=== PATIENT | male | born 1990 | race African-American/Black ===

== ENCOUNTER 2016-09-02 10:41 | Emergency (ER) | payer MEDICAID ==
[~2016-09-02] VITALS: Ht 180.3 cm; Wt 82.0 kg
[2016-09-02] MEDS ORDERED: PALI9TAB3 PO (10:48)
[2016-09-02] MEDS ORDERED: SODIUM CHLORIDE 0.9% 500 ML IV ONE (11:07)
[2016-09-02 11:13] VITALS: BP 126/72
[2016-09-02 11:28] LABS: BASOPHILS % 0.9 % (0.0-2.0); HEMATOCRIT. 40.4 % (42.0-52.0); HEMOGLOBIN. 14.1 g/dL (14.0-18.0); LYMPHOCYTES % 41.5 % (20.0-50.0); MEAN CORPUSCULAR HEMOGLOBIN 31.4 pg (28.0-32.0); MEAN CORPUSCULAR HGB CONC 34.9 g/dL (31.0-37.0); MEAN CORPUSCULAR VOLUME 89.9 fL (80.0-94.0); MEAN PLATELET VOLUME 9.5 fl (7.4-10.4); MONOCYTES % 8.6 % (2.0-8.0); PLATELET 178 x1000/uL (130-400); RED BLOOD CELL COUNT 4.49 mill/uL (4.7-6.1); RED CELL DISTRIBUTION WIDTH 12.6 % (11.6-14.6); WHITE BLOOD COUNT 4.7 x1000/uL (4.5-11.0)
[2016-09-02 11:37] LABS: INR 1.1
[2016-09-02 11:42] LABS: ALANINE AMINOTRANSFERASE 26 IU/L (13-61); ALBUMIN 3.7 g/dL (3.4-5.0); ANION GAP 10; CALCIUM 8.3 mg/dL (8.5-10.1); CARBON DIOXIDE 27 mEq/L (21-32); CHLORIDE 107 mEq/L (98-107); INDEX HEMOLYSI 1 (1-3); INDEX ICTERIC 1 (1-4); INDEX LIPEMIC 1 (1-3); UREA NITROGEN BLOOD 10 mg/dL (7-21); eGFR > 60 mL/min (>60)
[2016-09-02 11:46] LABS: NT PRO B-TYPE NATRIURETIC PEP 14 pg/mL (5-125); TROPONIN I < 0.02 ng/mL (0.00-0.04)
== END 2016-09-02 12:35 | disposition home or self-care (01) ==
LOC: ER 11:20
DX: R51 Headache (principal); R55 Syncope and collapse; F31.9 Bipolar disorder, unspecified
CPT/HCPCS: 36415; 70450; 80053; 83880; 84484; 85025; 85610; 93005; 99285; J7030